=== PATIENT | male | born 1970 | race Two or more races ===

== ENCOUNTER 2022-07-27 08:02 | Day surgery (SDC) | payer OTHER ==
[2022-07-27] MEDS ORDERED: MIRALAX17 GM PO (10:25)
[2022-07-27] MEDS ORDERED: KETO10TA2 PO (10:25)
[2022-07-27] MEDS ORDERED: TRAMADOL HCL50 MG PO (10:25)
[2022-07-27] MEDS ORDERED: TYLENOL ARTHRI650 MG PO (10:25)
== END 2022-07-27 16:25 | disposition home or self-care (01) ==
LOC: CIR.AMB 08:02
PROVIDERS: ATTEND Surgery
DX: K40.90 Unilateral inguinal hernia, without obstruction or gangrene, not specified as recurrent (principal); K42.9 Umbilical hernia without obstruction or gangrene; Z20.822 Contact with and (suspected) exposure to COVID-19
CPT/HCPCS: 49650; 49591; C1781